=== PATIENT | male | born 1950 ===

== ENCOUNTER 2022-11-03 15:31 | Inpatient (IN) | payer OTHER ==
[~2022-11-03] VITALS: Ht 162.6 cm; Wt 68.9 kg
[2022-11-04] MEDS ORDERED: CARDURA1 MG PO (13:28)
[2022-11-04] MEDS ORDERED: LOTREL 10-40 M1 EACH PO (13:28)
[2022-11-04] MEDS ORDERED: METFORMIN HCL500 M3 PO (13:29)
[2022-11-04] MEDS ORDERED: ATORVASTATIN CA10 MG PO (13:29)
[2022-11-11] MEDS ORDERED: DOXAZOSIN MESYLA4 MG (08:18)
[2022-11-11] MEDS ORDERED: ROSUVASTATIN CA40 MG (08:18)
[2022-11-11] MEDS ORDERED: METFORMIN HCL500 M4 (08:18)
[2022-11-14] MEDS ORDERED: PEPCID AC20 MG PO (09:12)
[2022-11-14] MEDS ORDERED: INTESTINEX680 M1 PO (09:13)
[2022-11-14] MEDS ORDERED: LEVSIN/SL0.125 MG SL (09:13)
== END 2022-11-14 10:42 | disposition home or self-care (01) | DRG 330 ==
LOC: O/R 11-11 05:51 → SURH 11-11 05:51
PROVIDERS: ADMIT Surgery; ATTEND Surgery
PROC: 07BB4ZZ Excision of Mesenteric Lymphatic, Percutaneous Endoscopic Approach (ICD-10-PCS; 2022-11-11)
PROC: 0DTG4ZZ Resection of Left Large Intestine, Percutaneous Endoscopic Approach (ICD-10-PCS; principal; 2022-11-11 11:30)
DX: D12.4 Benign neoplasm of descending colon (principal); K92.1 Melena; R59.0 Localized enlarged lymph nodes; E11.9 Type 2 diabetes mellitus without complications; I10 Essential (primary) hypertension